=== PATIENT | male | born 1935 | race Caucasian/White ===

== ENCOUNTER 2017-12-07 05:26 | Inpatient (IN) | payer MEDICARE, OTHER ==
[2017-12-06 15:01] LABS: BASOPHILS % (AUTO) 0.1 % (0-1); EOSINOPHILS # (AUTO) 0.3 X10'3 (0-0.9); EOSINOPHILS % (AUTO) 2.3 % (0-6); LYMPHOCYTES # (AUTO) 1.7 X10'3 (1.1-4.8); LYMPHOCYTES % (AUTO) 15.1 % (21-51); MEAN CORPUSCULAR HEMOGLOBIN 33.5 PG (27.0-31.0); MEAN CORPUSCULAR HGB CONC 35.3 % (33.0-36.5); MEAN PLATELET VOLUME 6.3 FL (7.4-10.4); MONOCYTES # (AUTO) 0.9 X10'3 (0-0.9); MONOCYTES % (AUTO) 8.2 % (2-12); NEUTROPHILS # (AUTO) 8.4 X10'3 (1.8-7.7); NEUTROPHILS % (AUTO) 74.3 % (42-75); PRE OP HEMATOCRIT 37.2 % (42.0-52.0); PRE OP HEMOGLOBIN 13.1 g/dL (14.0-17.9); PRE OP PLATELET COUNT 588 X10'3 (140-440); RED BLOOD COUNT 3.92 X10'6 (4.70-6.10); RED CELL DISTRIBUTION WIDTH 14.1 % (11.5-14.5)
[2017-12-06 15:03] LABS: CLARITY,URINE Clear (Clear); COLOR,URINE Dark Yellow (Yellow); GLUCOSE, URINE Negative (Neg); KETONES,URINE Trace mg/dl (Neg); LEUKOCYTE ESTERASE ,URINE Trace (Neg); NITRITES, URINE Negative (Neg); OCCULT BLOOD,URINE Small (Neg); PROTEIN,URINE Negative (Neg)
[2017-12-06 15:04] LABS: UA COLLECTION TYPE CLN CATCH MIDSTREAM
[2017-12-06 15:10] LABS: PRE OP INR 1.4 INR; PRE OP PROTIME 14.4 SECONDS (9.0-12.0)
[2017-12-06 15:15] LABS: ALBUMIN 3.1 G/DL (3.4-5.0); ALBUMIN/GLOBULIN RATIO 0.7 (1.1-1.5); ALKALINE PHOSPHATASE 86 IU/L (46-116); BLOOD UREA NITROGEN 20 MG/DL (7-18); BUN/CREATININE RATIO 19.4 (5.4-32.0); CALCIUM 8.9 MG/DL (8.5-10.1); CHLORIDE 101 MMOL/L (99-107); CREATININE 1.03 MG/DL (0.60-1.10); PRE OP ALT 22 U/L (30-65); PRE OP ANION GAP 7 (8-16); PRE OP AST 10 U/L (10-37); PRE OP BILIRUB, TOTAL 0.4 MG/DL (0.0-1.0); PRE OP GLUCOSE 128 MG/DL (70-104); PRE OP POTASSIUM 3.7 MMOL/L (3.4-5.1); PRE OP SODIUM 139 MMOL/L (135-145); TOTAL CARBON DIOXIDE 31.2 MMOL/L (24-32); TOTAL PROTEIN 7.3 G/DL (6.4-8.2); eGFR 69 ML/MIN
[2017-12-06 15:25] LABS: MUCUS STRANDS MODERATE /LPF (Neg); SQUAMOUS EPITHELIAL CELL,UR FEW /LPF (FEW)
[2017-12-06 15:26] LABS: BACTERIA,URINE 1+ /HPF (Neg); RBC,URINE 50-100 /HPF (0-2); WBC,URINE 0-4 /HPF (0-4)
[~2017-12-07] VITALS: Ht 175.3 cm; Wt 97.7 kg
[2017-12-07] VITALS (19 sets, daily range): BP systolic 103–126; BP diastolic 47–76
[~2017-12-07 05:26] MED LIST: AMLO5TAB16 PO; CALC-1051 PO; CARV25TA2 PO; DOXA8TAB PO; HYDR25TA4 PO; LISI40TA4 PO; PEMB100V IV; POTA10CA44 PO; VERA-1 PO; WARF5TAB7 PO; ringers solution, lacted 1,000 ML IV SCH
[2017-12-07] MEDS ORDERED: gabapentin 300mg capsule PO ONE (05:30)
[2017-12-07] MEDS ORDERED: acetaminophen 325mg tablet PO ONE (05:30)
[2017-12-07] MEDS ORDERED: famotidine 20mg tablet PO ONE (05:30)
[2017-12-07] MEDS ORDERED: DOCUMENT DATE & TIME OF BETA-BLOCKER PO ONE (05:30)
[2017-12-07] MEDS ORDERED: metoclopramide 5 mg/ml inj IV ONE (05:30)
[2017-12-07] MEDS ORDERED: celeCOXIB 100mg capsule PO ONE (05:30)
[2017-12-07] MEDS ORDERED: LIDOcaine 1% (10mg/ml) 2ml vial ONE (05:59)
[2017-12-07] MEDS ORDERED: metoclopramide 10mg tablet PO ONE (06:20)
[2017-12-07] MEDS ORDERED: BUPIVAcaine/dex-water/PF 7.5 mg/ml 2ml ampul ONE (07:00)
[2017-12-07] MEDS ORDERED: fentaNYL/PF 50MCG/1 ML 2ML syringe ONE (07:25)
[2017-12-07] MEDS ORDERED: midazolam 2 mg/2 ml injection ONE ×2 (07:26)
[2017-12-07] MEDS ORDERED: tobramycin sulfate 1.2gm vial TP ONE (07:55)
[2017-12-07] MEDS ORDERED: ringers solution, lacted 1,000 ML IV SCH (07:58)
[2017-12-07] MEDS ORDERED: morphine 2 MG/ML inj. syringe IV PRN ×2 (08:00)
[2017-12-07] MEDS ORDERED: ondansetron/PF 4mg/2ml inj IV PRN ×2 (08:00→10:05)
[2017-12-07] MEDS ORDERED: meperidine/PF 50mg/ml syringe IV PRN ×3 (08:00)
[2017-12-07] MEDS ORDERED: proCHLORperazine 10 MG/2 ml inj IV PRN (08:00)
[2017-12-07] MEDS ORDERED: ROPIVAcaine 0.5% (5mg/ml) 30ml vial ONE ×2 (08:07→09:33)
[2017-12-07] MEDS ORDERED: ketorolac trometh. 30mg/ml inj. ONE (08:07)
[2017-12-07] MEDS ORDERED: cloNIDine hcl/PF 100mcg/ml inj ONE (08:07)
[2017-12-07] MEDS ORDERED: epiNEPHrine 1 mg/ml inj ONE (08:07)
[2017-12-07] MEDS ORDERED: LIDOcaine 1%/PF (10mg/ml) 5ml vial ONE (08:42)
[2017-12-07] MEDS ORDERED: propofol inj 20 ML IV ONE (08:42)
[2017-12-07] MEDS ORDERED: vancomycin 1,000mg inj ONE ×6 (08:46→09:18)
[2017-12-07] MEDS ORDERED: ceFAZolin 1000mg inj ONE ×2 (08:50)
[2017-12-07] MEDS ORDERED: magnesium hydroxide 30ml (MOM) UD suspension PO PRN (10:05)
[2017-12-07] MEDS ORDERED: bisacodyl 10mg suppository rectal RC PRN (10:05)
[2017-12-07] MEDS ORDERED: acetaminophen 325mg tablet PO PRN (10:05)
[2017-12-07] MEDS ORDERED: diphenhydrAMINE 25mg capsule PO PRN ×2 (10:05)
[2017-12-07] MEDS ORDERED: HYDROmorphone inj. 0.5 MG/0.5 ML DISP.SYRIN IV PRN (10:05)
[2017-12-07] MEDS ORDERED: acetaminophen 1,000mg/100ml IV 100 ML IV SCH (10:55)
[2017-12-07] MEDS: potassium cl 20mEq in 1/2 NS 1,000 ML IV SCH ×2 (11:35→21:22)
[2017-12-07] MEDS: HYDROmorphone inj. 0.5 MG/0.5 ML DISP.SYRIN IV PRN (11:43)
[2017-12-07] MEDS ORDERED: vancomycin/NS 1 GM ADD-VANTAGE 500 ML IV ONE ×2 (12:00→13:30)
[2017-12-07 12:21] LABS: INR 1.3 INR; PROTHROMBIN TIME 13.5 SECONDS (9.0-12.0)
[2017-12-07] MEDS: gabapentin 300mg capsule PO SCH ×2 (13:47→20:37)
[2017-12-07] MEDS: HYDROcodone/acetaminophen 10/325mg tab PO PRN (13:54)
[2017-12-07] MEDS: cefazolin 1gm/NS 100mL 100 ML IV SCH (16:00)
[2017-12-07] MEDS: lactobacillus rhamnosus 10,000 MMU CELLS/CAPSULE PO SCH (17:30)
[2017-12-07] MEDS: celeCOXIB 100mg capsule PO SCH (20:21)
[2017-12-07] MEDS: calcium carbonate/vitamin D3 tablet PO SCH (20:21)
[2017-12-07] MEDS: ascorbic acid 500mg tablet PO SCH (20:21)
[2017-12-07] MEDS: carVEDilol 12.5mg tablet PO SCH (20:21)
[2017-12-07] MEDS: amLODIPine 2.5mg tablet PO SCH (20:37)
[2017-12-07] MEDS: lisinopril 20mg tablet PO SCH (20:38)
[2017-12-07] MEDS: sennosides 8.6mg tablet PO SCH (20:38)
[2017-12-07] MEDS: warfarin 7.5mg tablet PO SCH (20:38)
[2017-12-07] MEDS: doxazosin mesylate 2mg tablet PO SCH (20:39)
[2017-12-08] MEDS: vancomycin inj 1,250 MG in normal saline 250ml IV soln 250 ML IV SCH ×3 (00:20→23:53)
[2017-12-08] MEDS: cefazolin 1gm/NS 100mL 100 ML IV SCH (00:20)
[2017-12-08 02:07] VITALS: BP 128/73
[2017-12-08 05:00] VITALS: BP 138/83
[2017-12-08 05:23] LABS: BASOPHILS % (AUTO) 0.2 % (0-1); EOSINOPHILS # (AUTO) 0.2 X10'3 (0-0.9); EOSINOPHILS % (AUTO) 1.5 % (0-6); HEMATOCRIT 29.1 % (42.0-52.0); LYMPHOCYTES # (AUTO) 1.2 X10'3 (1.1-4.8); LYMPHOCYTES % (AUTO) 9.7 % (21-51); MEAN CORPUSCULAR HEMOGLOBIN 33.1 PG (27.0-31.0); MEAN CORPUSCULAR HGB CONC 34.3 % (33.0-36.5); MEAN CORPUSCULAR VOLUME 96.6 FL (78-98); MEAN PLATELET VOLUME 6.4 FL (7.4-10.4); MONOCYTES # (AUTO) 1.2 X10'3 (0-0.9); MONOCYTES % (AUTO) 9.5 % (2-12); NEUTROPHILS % (AUTO) 79.1 % (42-75); PLATELET COUNT 429 X10'3 (140-440); RED BLOOD COUNT 3.01 X10'6 (4.70-6.10); RED CELL DISTRIBUTION WIDTH 14.2 % (11.5-14.5); WHITE BLOOD COUNT 12.7 X10'3 (4.5-11.0)
[2017-12-08] MEDS: HYDROcodone/acetaminophen 10/325mg tab PO PRN ×4 (05:44→19:17)
[2017-12-08 06:17] LABS: INR 1.2 INR; PROTHROMBIN TIME 12.5 SECONDS (9.0-12.0)
[2017-12-08 06:33] LABS: ANION GAP 7 (8-16); CHLORIDE 105 MMOL/L (99-107); POTASSIUM 3.8 MMOL/L (3.5-5.1); SODIUM 139 MMOL/L (135-145); TOTAL CARBON DIOXIDE 26.6 MMOL/L (24-32)
[2017-12-08] MEDS: potassium cl 20mEq in 1/2 NS 1,000 ML IV SCH ×3 (06:47→17:29)
[2017-12-08] MEDS: verapamil SR 120mg (sust. release) tab PO SCH (07:47)
[2017-12-08] MEDS: lactobacillus rhamnosus 10,000 MMU CELLS/CAPSULE PO SCH ×2 (07:47→17:29)
[2017-12-08] MEDS: carVEDilol 12.5mg tablet PO SCH ×2 (07:48→19:16)
[2017-12-08] MEDS: HYDROchlorothiazide 25mg tablet PO SCH (07:48)
[2017-12-08] MEDS: celeCOXIB 100mg capsule PO SCH ×2 (07:48→19:15)
[2017-12-08] MEDS: gabapentin 300mg capsule PO SCH ×3 (07:48→20:58)
[2017-12-08] MEDS: calcium carbonate/vitamin D3 tablet PO SCH ×2 (07:48→19:15)
[2017-12-08] MEDS: ascorbic acid 500mg tablet PO SCH ×2 (07:49→19:15)
[2017-12-08] MEDS: potassium chloride 10mEq CAPSULE.SA PO SCH (07:49)
[2017-12-08] MEDS: multivitamins, therapeutics tablet PO SCH (07:49)
[2017-12-08] MEDS: lisinopril 20mg tablet PO SCH ×2 (07:49→19:16)
[2017-12-08 10:00] VITALS: BP 103/55
[2017-12-08] MEDS: HYDROmorphone inj. 0.5 MG/0.5 ML DISP.SYRIN IV PRN (12:13)
[2017-12-08 18:00] VITALS: BP 103/64
[2017-12-08] MEDS: amLODIPine 2.5mg tablet PO SCH (20:58)
[2017-12-08] MEDS: sennosides 8.6mg tablet PO SCH (20:58)
[2017-12-08] MEDS: warfarin 7.5mg tablet PO SCH (20:59)
[2017-12-08] MEDS: doxazosin mesylate 2mg tablet PO SCH (21:00)
[2017-12-08 22:00] VITALS: BP 123/65
[2017-12-09] MEDS: potassium cl 20mEq in 1/2 NS 1,000 ML IV SCH (02:03)
[2017-12-09 05:18] LABS: BASOPHILS # (AUTO) 0.1 X10'3 (0-0.2); BASOPHILS % (AUTO) 0.6 % (0-1); EOSINOPHILS # (AUTO) 0.4 X10'3 (0-0.9); EOSINOPHILS % (AUTO) 4.5 % (0-6); HEMATOCRIT 30.1 % (42.0-52.0); HEMOGLOBIN 10.3 g/dl (14.0-17.9); LYMPHOCYTES # (AUTO) 1.3 X10'3 (1.1-4.8); LYMPHOCYTES % (AUTO) 13.7 % (21-51); MEAN CORPUSCULAR HEMOGLOBIN 32.8 PG (27.0-31.0); MEAN CORPUSCULAR HGB CONC 34.3 % (33.0-36.5); MEAN CORPUSCULAR VOLUME 95.5 FL (78-98); MEAN PLATELET VOLUME 6.4 FL (7.4-10.4); MONOCYTES # (AUTO) 1.2 X10'3 (0-0.9); MONOCYTES % (AUTO) 12.8 % (2-12); NEUTROPHILS # (AUTO) 6.6 X10'3 (1.8-7.7); NEUTROPHILS % (AUTO) 68.4 % (42-75); PLATELET COUNT 437 X10'3 (140-440); RED BLOOD COUNT 3.15 X10'6 (4.70-6.10); RED CELL DISTRIBUTION WIDTH 14.8 % (11.5-14.5); WHITE BLOOD COUNT 9.7 X10'3 (4.5-11.0)
[2017-12-09] MEDS: HYDROcodone/acetaminophen 10/325mg tab PO PRN ×2 (05:32→12:25)
[2017-12-09 05:48] LABS: INR 1.3 INR; PROTHROMBIN TIME 13.5 SECONDS (9.0-12.0)
[2017-12-09 06:00] VITALS: BP 124/69
[2017-12-09] MEDS: lisinopril 20mg tablet PO SCH ×2 (08:48→20:00)
[2017-12-09] MEDS: ascorbic acid 500mg tablet PO SCH ×2 (08:49→19:32)
[2017-12-09] MEDS: carVEDilol 12.5mg tablet PO SCH ×2 (08:49→19:35)
[2017-12-09] MEDS: calcium carbonate/vitamin D3 tablet PO SCH ×2 (08:49→19:32)
[2017-12-09] MEDS: verapamil SR 120mg (sust. release) tab PO SCH (08:49)
[2017-12-09] MEDS: gabapentin 300mg capsule PO SCH ×3 (08:49→21:15)
[2017-12-09] MEDS: lactobacillus rhamnosus 10,000 MMU CELLS/CAPSULE PO SCH ×2 (08:49→19:32)
[2017-12-09] MEDS: celeCOXIB 100mg capsule PO SCH ×2 (08:49→19:32)
[2017-12-09] MEDS: HYDROchlorothiazide 25mg tablet PO SCH (08:49)
[2017-12-09] MEDS: multivitamins, therapeutics tablet PO SCH (08:49)
[2017-12-09] MEDS: potassium chloride 10mEq CAPSULE.SA PO SCH (08:50)
[2017-12-09 10:00] VITALS: BP 126/75
[2017-12-09] MEDS ORDERED: VANCOMYCIN LEVEL IV ONE (11:30)
[2017-12-09] MEDS: vancomycin inj 1,250 MG in normal saline 250ml IV soln 250 ML IV SCH (12:17)
[2017-12-09 19:00] VITALS: BP 98/50
[2017-12-09 19:30] VITALS: BP 111/61
[2017-12-09] MEDS: sennosides 8.6mg tablet PO SCH (21:00)
[2017-12-09] MEDS: amLODIPine 2.5mg tablet PO SCH (21:14)
[2017-12-09] MEDS: warfarin 7.5mg tablet PO SCH (21:14)
[2017-12-09 21:15] VITALS: BP 115/62
[2017-12-09] MEDS: doxazosin mesylate 2mg tablet PO SCH (21:15)
[2017-12-09 22:00] VITALS: BP 107/66
[2017-12-10] MEDS: vancomycin inj 1,250 MG in normal saline 250ml IV soln 250 ML IV SCH ×2 (00:32→13:18)
[2017-12-10] MEDS: HYDROcodone/acetaminophen 10/325mg tab PO PRN ×3 (04:56→16:44)
[2017-12-10 05:20] LABS: BASOPHILS % (AUTO) 0.3 % (0-1); EOSINOPHILS # (AUTO) 0.6 X10'3 (0-0.9); EOSINOPHILS % (AUTO) 6.3 % (0-6); HEMATOCRIT 26.7 % (42.0-52.0); HEMOGLOBIN 9.2 g/dl (14.0-17.9); LYMPHOCYTES # (AUTO) 1.6 X10'3 (1.1-4.8); LYMPHOCYTES % (AUTO) 17.1 % (21-51); MEAN CORPUSCULAR HEMOGLOBIN 33.1 PG (27.0-31.0); MEAN CORPUSCULAR HGB CONC 34.3 % (33.0-36.5); MEAN CORPUSCULAR VOLUME 96.5 FL (78-98); MEAN PLATELET VOLUME 6.4 FL (7.4-10.4); MONOCYTES # (AUTO) 1.3 X10'3 (0-0.9); NEUTROPHILS # (AUTO) 5.8 X10'3 (1.8-7.7); NEUTROPHILS % (AUTO) 62.3 % (42-75); PLATELET COUNT 405 X10'3 (140-440); RED BLOOD COUNT 2.77 X10'6 (4.70-6.10); RED CELL DISTRIBUTION WIDTH 14.4 % (11.5-14.5); WHITE BLOOD COUNT 9.4 X10'3 (4.5-11.0)
[2017-12-10 05:27] LABS: INR 1.4 INR; PROTHROMBIN TIME 14.1 SECONDS (9.0-12.0)
[2017-12-10 06:00] VITALS: BP 132/80
[2017-12-10] MEDS: verapamil SR 120mg (sust. release) tab PO SCH (09:33)
[2017-12-10] MEDS: celeCOXIB 100mg capsule PO SCH ×2 (09:33→20:32)
[2017-12-10] MEDS: lactobacillus rhamnosus 10,000 MMU CELLS/CAPSULE PO SCH ×2 (09:33→16:44)
[2017-12-10] MEDS: carVEDilol 12.5mg tablet PO SCH ×2 (09:34→20:32)
[2017-12-10] MEDS: potassium Cl 20 mEq SR tablet PO SCH (09:34)
[2017-12-10] MEDS: gabapentin 300mg capsule PO SCH ×3 (09:34→20:31)
[2017-12-10] MEDS: multivitamins, therapeutics tablet PO SCH (09:34)
[2017-12-10] MEDS: HYDROchlorothiazide 25mg tablet PO SCH (09:34)
[2017-12-10] MEDS: ascorbic acid 500mg tablet PO SCH ×2 (09:34→20:31)
[2017-12-10] MEDS: calcium carbonate/vitamin D3 tablet PO SCH ×2 (09:34→20:33)
[2017-12-10] MEDS: lisinopril 20mg tablet PO SCH ×2 (09:35→20:00)
[2017-12-10 10:00] VITALS: BP 100/67
[2017-12-10 18:00] VITALS: BP 104/54
[2017-12-10 20:30] VITALS: BP 116/64
[2017-12-10] MEDS: warfarin 7.5mg tablet PO SCH (20:32)
[2017-12-10] MEDS: doxazosin mesylate 2mg tablet PO SCH (20:33)
[2017-12-10] MEDS: sennosides 8.6mg tablet PO SCH (20:38)
[2017-12-10] MEDS: amLODIPine 2.5mg tablet PO SCH (21:51)
[2017-12-10 22:00] VITALS: BP 113/59
[2017-12-11] MEDS: vancomycin inj 1,250 MG in normal saline 250ml IV soln 250 ML IV SCH ×2 (00:04→12:40)
[2017-12-11] MEDS: HYDROcodone/acetaminophen 10/325mg tab PO PRN (05:28)
[2017-12-11 05:53] LABS: INR 1.5 INR; PROTHROMBIN TIME 15.4 SECONDS (9.0-12.0)
[2017-12-11] MEDS: gabapentin 300mg capsule PO SCH ×2 (08:55→12:40)
[2017-12-11] MEDS: verapamil SR 120mg (sust. release) tab PO SCH (08:55)
[2017-12-11] MEDS: HYDROchlorothiazide 25mg tablet PO SCH (08:55)
[2017-12-11] MEDS: calcium carbonate/vitamin D3 tablet PO SCH (08:55)
[2017-12-11] MEDS: ascorbic acid 500mg tablet PO SCH (08:55)
[2017-12-11] MEDS: celeCOXIB 100mg capsule PO SCH (08:55)
[2017-12-11] MEDS: lactobacillus rhamnosus 10,000 MMU CELLS/CAPSULE PO SCH (08:55)
[2017-12-11] MEDS: lisinopril 20mg tablet PO SCH (08:56)
[2017-12-11] MEDS: potassium Cl 20 mEq SR tablet PO SCH (08:56)
[2017-12-11] MEDS: multivitamins, therapeutics tablet PO SCH (08:56)
[2017-12-11] MEDS: carVEDilol 12.5mg tablet PO SCH (08:56)
[2017-12-11 10:00] VITALS: BP 110/54
== END 2017-12-11 16:10 | disposition home health service (06) | DRG 464 ==
LOC: PAS IN 05:26 → EDSTATUS 07:30 → ORTHO 4S 11:12
PROVIDERS: ADMIT Orthopaedic Surgery; ATTEND Orthopaedic Surgery
PROC: 0SHC08Z Insertion of Spacer into Right Knee Joint, Open Approach (ICD-10-PCS; 2017-12-07)
PROC: 3E0T3BZ Introduction of Anesthetic Agent into Peripheral Nerves and Plexi, Percutaneous Approach (ICD-10-PCS; 2017-12-07)
PROC: 0SPC0JZ Removal of Synthetic Substitute from Right Knee Joint, Open Approach (ICD-10-PCS; principal; 2017-12-07 07:12)
PROC: 02HV33Z Insertion of Infusion Device into Superior Vena Cava, Percutaneous Approach (ICD-10-PCS; 2017-12-11)
PROC: B548ZZA Ultrasonography of Superior Vena Cava, Guidance (ICD-10-PCS; 2017-12-11)
DX: T84.53XA Infection and inflammatory reaction due to internal right knee prosthesis, initial encounter (principal); C78.7 Secondary malignant neoplasm of liver and intrahepatic bile duct; C43.9 Malignant melanoma of skin, unspecified; D62 Acute posthemorrhagic anemia; I48.2 Chronic atrial fibrillation; M19.90 Unspecified osteoarthritis, unspecified site; I10 Essential (primary) hypertension; M66.0 Rupture of popliteal cyst; N40.0 Benign prostatic hyperplasia without lower urinary tract symptoms; Y83.1 Surgical operation with implant of artificial internal device as the cause of abnormal reaction of the patient, or of later complication, without mention of misadventure at the time of the procedure; Z79.01 Long term (current) use of anticoagulants; Z79.899 Other long term (current) drug therapy; Z86.718 Personal history of other venous thrombosis and embolism; Z86.73 Personal history of transient ischemic attack (TIA), and cerebral infarction without residual deficits
CPT/HCPCS: 36415; 36569; 71045; 71046; 73560; 76937; 80051; 80053; 80202; 81001; 85025; 85610; 85651; 85730; 86140; 86885; 86900; 86901; 87070; 87075; 87088; 87102; 87176; 97110; 97116; 97162; 97530; A6213; A6455; A7000; C1713; C1758; J0131; J0171; J0690; J0735; J1170; J1885; J2001; J2175; J2250; J2704; J2795; J3010; J3260; J3370; J3490; J7030; J7120; J8597

== ENCOUNTER 2018-04-05 09:41 | Emergency (ER) | payer MEDICARE, OTHER ==
[~2018-04-05] VITALS: Ht 175.3 cm; Wt 90.9 kg
[~2018-04-05 09:41] MED LIST changes: +MULT-963 PO; +PEMB100V; -PEMB100V IV; -POTA10CA44 PO; +POTA20TA19 PO; +WARF-55 PO; -WARF5TAB7 PO; -ringers solution, lacted 1,000 ML IV SCH
[2018-04-05] MEDS ORDERED: DAPT500V2 (11:51)
[2018-04-05 11:58] LABS: CLARITY,URINE CLEAR (Clear); COLOR,URINE YELLOW (Yellow); GLUCOSE, URINE NEGATIVE (Neg); KETONES,URINE NEGATIVE (Neg); LEUKOCYTE ESTERASE ,URINE NEGATIVE (Neg); NITRITES, URINE NEGATIVE (Neg); OCCULT BLOOD,URINE TRACE-LYSED (Neg); PH,URINE 7.5 (4.8-8.0); PROTEIN,URINE NEGATIVE (Neg); UROBILINOGEN,URINE 0.2 E.U/dL (0.2-1.0)
[2018-04-05 11:59] LABS: UA COLLECTION TYPE CLN CATCH MIDSTREAM
[2018-04-05 12:10] LABS: BACTERIA,URINE FEW /HPF (Neg); SQUAMOUS EPITHELIAL CELL,UR FEW /LPF (FEW); WBC,URINE 0-4 /HPF (0-4)
[2018-04-05 12:37] LABS: BASOPHILS % (AUTO) 0.2 % (0-1); EOSINOPHILS # (AUTO) 0.2 X10'3 (0-0.9); EOSINOPHILS % (AUTO) 2.3 % (0-6); HEMATOCRIT 29.5 % (42.0-52.0); HEMOGLOBIN 9.9 g/dl (14.0-17.9); LYMPHOCYTES % (AUTO) 12.9 % (21-51); MEAN CORPUSCULAR HEMOGLOBIN 31.3 PG (27.0-31.0); MEAN CORPUSCULAR HGB CONC 33.5 % (33.0-36.5); MEAN CORPUSCULAR VOLUME 93.3 FL (78-98); MEAN PLATELET VOLUME 6.3 FL (7.4-10.4); MONOCYTES # (AUTO) 0.7 X10'3 (0-0.9); NEUTROPHILS # (AUTO) 5.9 X10'3 (1.8-7.7); NEUTROPHILS % (AUTO) 75.6 % (42-75); PLATELET COUNT 487 X10'3 (140-440); RED BLOOD COUNT 3.16 X10'6 (4.70-6.10); RED CELL DISTRIBUTION WIDTH 15.2 % (11.5-14.5); WHITE BLOOD COUNT 7.9 X10'3 (4.5-11.0)
[2018-04-05 12:47] LABS: INR 2.6 INR; PARTIAL THROMBOPLASTIN TIME 34 SECONDS (22-32); PROTHROMBIN TIME 25.6 SECONDS (9.0-12.0)
[2018-04-05 12:55] LABS: ALANINE AMINOTRANSFERASE 19 U/L (12-78); ALBUMIN/GLOBULIN RATIO 0.8 (1.1-1.5); ALKALINE PHOSPHATASE 99 IU/L (46-116); ANION GAP 8 (8-16); ASPARTATE AMINO TRANSFERASE 16 U/L (10-37); BILIRUBIN,TOTAL 0.6 MG/DL (0.1-1.0); BLOOD UREA NITROGEN 13 MG/DL (7-18); BUN/CREATININE RATIO 16.3 (5.4-32.0); C-REACTIVE PROTEIN 6.32 MG/DL (0.0-0.5); CALCIUM 8.9 MG/DL (8.5-10.1); CHLORIDE 102 MMOL/L (99-107); GLUCOSE 131 MG/DL (70-104); POTASSIUM 3.6 MMOL/L (3.5-5.1); SODIUM 140 MMOL/L (135-145); eGFR > 90 ML/MIN
[2018-04-05 14:44] VITALS: BP 126/80
== END 2018-04-05 15:37 | disposition home or self-care (01) ==
LOC: ER 09:43
DX: M96.89 Other intraoperative and postprocedural complications and disorders of the musculoskeletal system (principal); R22.41 Localized swelling, mass and lump, right lower limb; I48.91 Unspecified atrial fibrillation; Z98.890 Other specified postprocedural states; Z88.8 Allergy status to other drugs, medicaments and biological substances; Z79.899 Other long term (current) drug therapy; Z79.01 Long term (current) use of anticoagulants
CPT/HCPCS: 36415; 73560; 80053; 81001; 84145; 85025; 85610; 85651; 85730; 86140; 87070; 87077; 87186; 99285; A6449

== ENCOUNTER 2018-04-11 09:55 | Inpatient (IN) | payer MEDICARE, OTHER ==
[2018-04-11] VITALS (17 sets, daily range): BP systolic 115–152; BP diastolic 55–84
[~2018-04-11] VITALS: Ht 175.3 cm; Wt 90.7 kg
[~2018-04-11 09:55] MED LIST changes: +DAPT500V2; +acetaminophen 325mg tablet PO ONE; +ceFAZolin 1GM/D5W- ADD-VANTAGE 50 ML IV ONE; +ceFAZolin 2gm in dextrose, iso 100 ML IV ONE; +celeCOXIB 100mg capsule PO ONE; +famotidine 20mg tablet PO ONE; +gabapentin 300mg capsule PO ONE; +metoclopramide 5 mg/ml inj IV ONE; +ringers solution, lacted 1,000 ML IV SCH; +vancomycin inj 1,500 MG in normal saline 300ml IV soln IV ONE
[2018-04-11 10:34] LABS: BASOPHILS % (AUTO) 0.2 % (0-1); EOSINOPHILS # (AUTO) 0.3 X10'3 (0-0.9); EOSINOPHILS % (AUTO) 2.8 % (0-6); LYMPHOCYTES # (AUTO) 1.2 X10'3 (1.1-4.8); LYMPHOCYTES % (AUTO) 12.9 % (21-51); MEAN CORPUSCULAR HEMOGLOBIN 30.9 PG (27.0-31.0); MEAN CORPUSCULAR HGB CONC 33.3 % (33.0-36.5); MEAN CORPUSCULAR VOLUME 93.1 FL (78-98); MONOCYTES # (AUTO) 0.7 X10'3 (0-0.9); MONOCYTES % (AUTO) 7.8 % (2-12); NEUTROPHILS % (AUTO) 76.3 % (42-75); PRE OP HEMATOCRIT 31.4 % (42.0-52.0); PRE OP PLATELET COUNT 505 X10'3 (140-440); RED BLOOD COUNT 3.37 X10'6 (4.70-6.10); RED CELL DISTRIBUTION WIDTH 15.7 % (11.5-14.5)
[2018-04-11 10:36] LABS: PRE OP HEMOGLOBIN 10.4 g/dL (14.0-17.9)
[2018-04-11 10:45] LABS: PRE OP PROTIME 19.4 SECONDS (9.0-12.0)
[2018-04-11 10:46] LABS: PRE OP INR 1.9 INR
[2018-04-11 10:49] LABS: ALBUMIN 3.2 G/DL (3.4-5.0); ALBUMIN/GLOBULIN RATIO 0.8 (1.1-1.5); ALKALINE PHOSPHATASE 94 IU/L (46-116); BLOOD UREA NITROGEN 14 MG/DL (7-18); BUN/CREATININE RATIO 16.1 (5.4-32.0); CALCIUM 8.9 MG/DL (8.5-10.1); CHLORIDE 102 MMOL/L (99-107); CREATININE 0.87 MG/DL (0.60-1.10); PRE OP ALT 17 U/L (30-65); PRE OP ANION GAP 10 (8-16); PRE OP AST 12 U/L (10-37); PRE OP BILIRUB, TOTAL 0.5 MG/DL (0.0-1.0); PRE OP GLUCOSE 124 MG/DL (70-104); PRE OP SODIUM 141 MMOL/L (135-145); TOTAL CARBON DIOXIDE 28.9 MMOL/L (24-32); TOTAL PROTEIN 7.3 G/DL (6.4-8.2); eGFR 84 ML/MIN
[2018-04-11 10:54] LABS: PRE OP POTASSIUM 2.9 MMOL/L (3.4-5.1)
[2018-04-11] MEDS ORDERED: ROPIVAcaine inj 250 MG, epiNEPHrine inj 0.5 MG, CloNIDine/PF inj 80 MCG in normal salin... SQ ONE (11:45)
[2018-04-11] MEDS ORDERED: ketorolac trometh. 30mg/ml inj. ONE (11:58)
[2018-04-11] MEDS ORDERED: vancomycin 1,000mg inj ONE ×2 (11:58→14:39)
[2018-04-11] MEDS ORDERED: Potassium Cl inj 40 MEQ, LIDOcaine 1% 30ml vial 5 ML in normal saline 500ml IV soln 500 ML IV ONE (12:10)
[2018-04-11] MEDS ORDERED: BUPIVAcaine/PF 7.5mg/ml (0.75%) 10ml vial ONE (14:58)
[2018-04-11] MEDS ORDERED: ROPIVAcaine 0.5% (5mg/ml) 30ml vial ONE (14:58)
[2018-04-11] MEDS ORDERED: tetracaine 1% (10mg/ml) pres. free inj. ONE (14:59)
[2018-04-11] MEDS ORDERED: fentaNYL/PF 50MCG/1 ML 2ML syringe ONE (15:05)
[2018-04-11] MEDS ORDERED: morphine sulfate /PF 0.5 MG/ML 10mL ampul ONE (15:06)
[2018-04-11] MEDS ORDERED: tobramycin sulfate 1.2gm vial IJ ONE (15:10)
[2018-04-11] MEDS ORDERED: morphine 4 MG/ML inj SYRINge IV PRN ×2 (15:55)
[2018-04-11] MEDS ORDERED: ringers solution, lacted 1,000 ML IV SCH (15:55)
[2018-04-11] MEDS ORDERED: fentaNYL/PF 50MCG/1 ML 2ML syringe IV PRN ×2 (15:55)
[2018-04-11] MEDS ORDERED: labetalol 20mg/4ml (5mg/ml) syringe IV PRN (15:55)
[2018-04-11] MEDS ORDERED: enalaprilat dihydrate 2.5mg/2ml vial IV PRN (15:55)
[2018-04-11] MEDS ORDERED: ondansetron/PF 4mg/2ml inj IV PRN ×2 (15:55→17:40)
[2018-04-11] MEDS ORDERED: tranexamic acid 100mg/ml inj. ONE (16:26)
[2018-04-11] MEDS ORDERED: MIDAZolam 5mg/5ml vial ONE (16:47)
[2018-04-11] MEDS ORDERED: oxyCODONE/APAP 10/325mg tablet PO PRN ×2 (17:40)
[2018-04-11] MEDS ORDERED: magnesium hydroxide 30ml (MOM) UD suspension PO PRN (17:40)
[2018-04-11] MEDS ORDERED: bisacodyl 10mg suppository rectal RC PRN (17:40)
[2018-04-11] MEDS ORDERED: diphenhydrAMINE 25mg capsule PO PRN ×2 (17:40)
[2018-04-11] MEDS ORDERED: HYDROmorphone 1 mg/ml syringe IV PRN ×2 (17:40)
[2018-04-11] MEDS ORDERED: acetaminophen 325mg tablet PO PRN (17:40)
[2018-04-11 17:50] LABS: ISTAT ANION GAP 14 (8-12); ISTAT BUN 14 mg/dL (6-19); ISTAT CL 102 mmol/L (99-107); ISTAT CREATININE 0.6 mg/dL (0.8-1.3); ISTAT GLUCOSE 115 mg/dL (70-104); ISTAT HGB 8.5 g/dl (14.0-18.0); ISTAT Hct 25 %PCV (42-52); ISTAT IONIZED CALCIUM 1.19 mmol/L (1.03-1.32); ISTAT K 3.5 mmol/L (3.5-5.1); ISTAT NA 141 mmol/L (135-145); ISTAT TOTAL CO2 25 mmol/L (24-32); ISTAT eGFR > 90 ML/MIN; POC BUN/CREATININE RATIO 23.3 (5.4-32.0)
[2018-04-11] MEDS ORDERED: non-formulary drug (Calcium Carbonate/Vitamin D3 (Calcium 500 + D Tablet) 1 TAB) PO SCH (20:00)
[2018-04-11] MEDS ORDERED: non-formulary drug (Carvedilol 1 TAB) PO SCH (20:00)
[2018-04-11] MEDS ORDERED: non-formulary drug (Lisinopril* 1 TAB) PO SCH (20:00)
[2018-04-11] MEDS: amLODIPine 2.5mg tablet PO SCH (20:07)
[2018-04-11] MEDS: potassium cl 20mEq in 1/2 NS 1,000 ML IV SCH (20:07)
[2018-04-11] MEDS: doxazosin mesylate 2mg tablet PO SCH (20:07)
[2018-04-11] MEDS: gabapentin 300mg capsule PO SCH (20:07)
[2018-04-11] MEDS: carVEDilol 12.5mg tablet PO SCH (20:08)
[2018-04-11] MEDS: ascorbic acid 500mg tablet PO SCH (20:08)
[2018-04-11] MEDS: warfarin 5mg tablet PO SCH (20:08)
[2018-04-11] MEDS: calcium carbonate/vitamin D3 tablet PO SCH (20:08)
[2018-04-11] MEDS: lisinopril 20mg tablet PO SCH (20:08)
[2018-04-11] MEDS: potassium Cl 20 mEq SR tablet PO SCH (20:08)
[2018-04-11] MEDS: sennosides 8.6mg tablet PO SCH (20:09)
[2018-04-11] MEDS ORDERED: non-formulary drug (Doxazosin Mesylate 1 TAB) PO SCH (21:00)
[2018-04-12 02:30] VITALS: BP 132/79
[2018-04-12] MEDS: potassium cl 20mEq in 1/2 NS 1,000 ML IV SCH ×3 (03:44→17:37)
[2018-04-12 05:29] LABS: BASOPHILS % (AUTO) 0.3 % (0-1); EOSINOPHILS % (AUTO) 0.1 % (0-6); HEMATOCRIT 26.1 % (42.0-52.0); HEMOGLOBIN 8.7 g/dl (14.0-17.9); LYMPHOCYTES # (AUTO) 0.7 X10'3 (1.1-4.8); LYMPHOCYTES % (AUTO) 12.7 % (21-51); MEAN CORPUSCULAR HEMOGLOBIN 30.6 PG (27.0-31.0); MEAN CORPUSCULAR HGB CONC 33.3 % (33.0-36.5); MEAN CORPUSCULAR VOLUME 91.8 FL (78-98); MEAN PLATELET VOLUME 6.6 FL (7.4-10.4); MONOCYTES # (AUTO) 0.1 X10'3 (0-0.9); MONOCYTES % (AUTO) 1.8 % (2-12); NEUTROPHILS # (AUTO) 4.4 X10'3 (1.8-7.7); NEUTROPHILS % (AUTO) 85.1 % (42-75); PLATELET COUNT 454 X10'3 (140-440); RED BLOOD COUNT 2.85 X10'6 (4.70-6.10); RED CELL DISTRIBUTION WIDTH 15.3 % (11.5-14.5); WHITE BLOOD COUNT 5.2 X10'3 (4.5-11.0)
[2018-04-12 05:45] LABS: INR 1.7 INR; PROTHROMBIN TIME 17.5 SECONDS (9.0-12.0)
[2018-04-12 05:55] LABS: ANION GAP 10 (8-16); CHLORIDE 102 MMOL/L (99-107); POTASSIUM 3.7 MMOL/L (3.5-5.1); SODIUM 138 MMOL/L (135-145); TOTAL CARBON DIOXIDE 26.4 MMOL/L (24-32)
[2018-04-12] MEDS: DAPTOmycin inj. 500 MG in normal saline 100ml IV soln 100 ML IV SCH (07:44)
[2018-04-12] MEDS: HYDROchlorothiazide 25mg tablet PO SCH (07:45)
[2018-04-12] MEDS: gabapentin 300mg capsule PO SCH ×3 (07:45→20:19)
[2018-04-12] MEDS: verapamil SR 120mg (sust. release) tab PO SCH (07:45)
[2018-04-12] MEDS: carVEDilol 12.5mg tablet PO SCH ×2 (07:45→20:19)
[2018-04-12] MEDS: calcium carbonate/vitamin D3 tablet PO SCH ×2 (07:46→20:17)
[2018-04-12] MEDS: lisinopril 20mg tablet PO SCH ×2 (07:47→20:25)
[2018-04-12] MEDS: ascorbic acid 500mg tablet PO SCH ×2 (07:47→20:19)
[2018-04-12] MEDS: multivitamins, therapeutics tablet PO SCH (07:47)
[2018-04-12] MEDS: potassium Cl 20 mEq SR tablet PO SCH ×2 (07:54→20:18)
[2018-04-12 08:00] VITALS: BP 151/86
[2018-04-12] MEDS ORDERED: VERAPAMIL HCL 120 MG PO SCH (08:00)
[2018-04-12 10:00] VITALS: BP 133/73
[2018-04-12 13:57] VITALS: BP 127/57
[2018-04-12 18:00] VITALS: BP 141/74
[2018-04-12] MEDS: celeCOXIB 100mg capsule PO SCH (20:16)
[2018-04-12] MEDS: sennosides 8.6mg tablet PO SCH (20:18)
[2018-04-12] MEDS: lactobacillus rhamnosus 10,000 MMU CELLS/CAPSULE PO SCH (20:23)
[2018-04-12] MEDS: amLODIPine 2.5mg tablet PO SCH (20:24)
[2018-04-12] MEDS: warfarin 5mg tablet PO SCH (20:24)
[2018-04-12] MEDS: doxazosin mesylate 2mg tablet PO SCH (20:25)
[2018-04-12] MEDS ORDERED: warfarin 5mg tablet PO SCH (21:00)
[2018-04-12 22:00] VITALS: BP 144/71
[2018-04-13] MEDS: potassium cl 20mEq in 1/2 NS 1,000 ML IV SCH ×2 (01:37→19:25)
[2018-04-13 05:10] LABS: BASOPHILS % (AUTO) 0.2 % (0-1); EOSINOPHILS % (AUTO) 0.4 % (0-6); HEMATOCRIT 26.1 % (42.0-52.0); HEMOGLOBIN 8.9 g/dl (14.0-17.9); LYMPHOCYTES # (AUTO) 1.4 X10'3 (1.1-4.8); LYMPHOCYTES % (AUTO) 12.9 % (21-51); MEAN CORPUSCULAR HEMOGLOBIN 31.3 PG (27.0-31.0); MEAN CORPUSCULAR HGB CONC 33.9 % (33.0-36.5); MEAN CORPUSCULAR VOLUME 92.3 FL (78-98); MEAN PLATELET VOLUME 6.2 FL (7.4-10.4); MONOCYTES # (AUTO) 1.1 X10'3 (0-0.9); NEUTROPHILS # (AUTO) 8.4 X10'3 (1.8-7.7); NEUTROPHILS % (AUTO) 76.5 % (42-75); PLATELET COUNT 485 X10'3 (140-440); RED BLOOD COUNT 2.83 X10'6 (4.70-6.10); RED CELL DISTRIBUTION WIDTH 15.4 % (11.5-14.5); WHITE BLOOD COUNT 10.9 X10'3 (4.5-11.0)
[2018-04-13 05:55] LABS: INR 2.3 INR; PROTHROMBIN TIME 23.3 SECONDS (9.0-12.0)
[2018-04-13 06:00] VITALS: BP 154/72
[2018-04-13] MEDS: verapamil SR 120mg (sust. release) tab PO SCH (08:07)
[2018-04-13] MEDS: calcium carbonate/vitamin D3 tablet PO SCH ×2 (08:07→20:17)
[2018-04-13] MEDS: ascorbic acid 500mg tablet PO SCH ×2 (08:07→20:17)
[2018-04-13] MEDS: gabapentin 300mg capsule PO SCH ×3 (08:07→20:20)
[2018-04-13] MEDS: carVEDilol 12.5mg tablet PO SCH ×2 (08:07→20:16)
[2018-04-13] MEDS: multivitamins, therapeutics tablet PO SCH (08:07)
[2018-04-13] MEDS: HYDROchlorothiazide 25mg tablet PO SCH (08:07)
[2018-04-13] MEDS: celeCOXIB 100mg capsule PO SCH ×2 (08:07→20:15)
[2018-04-13] MEDS: lisinopril 20mg tablet PO SCH ×2 (08:07→20:17)
[2018-04-13] MEDS: lactobacillus rhamnosus 10,000 MMU CELLS/CAPSULE PO SCH ×2 (08:07→20:16)
[2018-04-13] MEDS: potassium Cl 20 mEq SR tablet PO SCH ×2 (08:07→20:17)
[2018-04-13] MEDS: DAPTOmycin inj. 500 MG in normal saline 100ml IV soln 100 ML IV SCH (08:29)
[2018-04-13 10:00] VITALS: BP 129/63
[2018-04-13 18:00] VITALS: BP 133/79
[2018-04-13 20:14] VITALS: BP 128/71
[2018-04-13] MEDS: doxazosin mesylate 2mg tablet PO SCH (20:18)
[2018-04-13] MEDS: amLODIPine 2.5mg tablet PO SCH (20:20)
[2018-04-13] MEDS: sennosides 8.6mg tablet PO SCH (20:21)
[2018-04-13] MEDS ORDERED: warfarin 2.5mg tablet PO ONE (21:00)
[2018-04-13 22:07] VITALS: BP 139/70
[2018-04-14 05:38] LABS: BASOPHILS % (AUTO) 0.4 % (0-1); EOSINOPHILS # (AUTO) 0.2 X10'3 (0-0.9); EOSINOPHILS % (AUTO) 2.4 % (0-6); HEMATOCRIT 27.5 % (42.0-52.0); HEMOGLOBIN 9.1 g/dl (14.0-17.9); LYMPHOCYTES # (AUTO) 1.4 X10'3 (1.1-4.8); LYMPHOCYTES % (AUTO) 17.4 % (21-51); MEAN CORPUSCULAR HEMOGLOBIN 30.6 PG (27.0-31.0); MEAN CORPUSCULAR HGB CONC 33.2 % (33.0-36.5); MEAN CORPUSCULAR VOLUME 92.3 FL (78-98); MEAN PLATELET VOLUME 6.7 FL (7.4-10.4); MONOCYTES % (AUTO) 12.3 % (2-12); NEUTROPHILS # (AUTO) 5.6 X10'3 (1.8-7.7); NEUTROPHILS % (AUTO) 67.5 % (42-75); PLATELET COUNT 500 X10'3 (140-440); RED BLOOD COUNT 2.98 X10'6 (4.70-6.10); RED CELL DISTRIBUTION WIDTH 15.4 % (11.5-14.5); WHITE BLOOD COUNT 8.3 X10'3 (4.5-11.0)
[2018-04-14 05:56] LABS: INR 1.8 INR; PROTHROMBIN TIME 18.6 SECONDS (9.0-12.0)
[2018-04-14 06:00] VITALS: BP 142/42
[2018-04-14] MEDS: lactobacillus rhamnosus 10,000 MMU CELLS/CAPSULE PO SCH ×2 (07:07→19:28)
[2018-04-14] MEDS: multivitamins, therapeutics tablet PO SCH (07:07)
[2018-04-14] MEDS: celeCOXIB 100mg capsule PO SCH ×2 (07:07→19:28)
[2018-04-14] MEDS: verapamil SR 120mg (sust. release) tab PO SCH (07:07)
[2018-04-14] MEDS: potassium Cl 20 mEq SR tablet PO SCH ×2 (07:07→19:28)
[2018-04-14] MEDS: gabapentin 300mg capsule PO SCH ×3 (07:07→19:36)
[2018-04-14] MEDS: HYDROchlorothiazide 25mg tablet PO SCH (07:07)
[2018-04-14] MEDS: calcium carbonate/vitamin D3 tablet PO SCH ×2 (07:07→19:28)
[2018-04-14] MEDS: carVEDilol 12.5mg tablet PO SCH ×2 (07:07→19:28)
[2018-04-14] MEDS: ascorbic acid 500mg tablet PO SCH ×2 (07:08→19:28)
[2018-04-14] MEDS: lisinopril 20mg tablet PO SCH ×2 (07:08→19:28)
[2018-04-14 07:12] VITALS: BP 150/73
[2018-04-14] MEDS: DAPTOmycin inj. 500 MG in normal saline 100ml IV soln 100 ML IV SCH (07:46)
[2018-04-14 10:00] VITALS: BP 119/63
[2018-04-14 18:00] VITALS: BP 134/85
[2018-04-14] MEDS: doxazosin mesylate 2mg tablet PO SCH (19:30)
[2018-04-14] MEDS: amLODIPine 2.5mg tablet PO SCH (19:36)
[2018-04-14] MEDS: sennosides 8.6mg tablet PO SCH (19:36)
[2018-04-14] MEDS ORDERED: warfarin 4mg tablet PO ONE (21:00)
[2018-04-14 22:00] VITALS: BP 126/69
[2018-04-15 05:36] LABS: INR 1.5 INR; PROTHROMBIN TIME 15.7 SECONDS (9.0-12.0)
[2018-04-15 06:00] VITALS: BP 144/71
[2018-04-15] MEDS: potassium Cl 20 mEq SR tablet PO SCH ×2 (07:21→20:09)
[2018-04-15] MEDS: multivitamins, therapeutics tablet PO SCH (07:22)
[2018-04-15] MEDS: carVEDilol 12.5mg tablet PO SCH ×2 (07:22→20:09)
[2018-04-15] MEDS: lisinopril 20mg tablet PO SCH ×2 (07:22→20:09)
[2018-04-15] MEDS: lactobacillus rhamnosus 10,000 MMU CELLS/CAPSULE PO SCH ×2 (07:22→20:09)
[2018-04-15] MEDS: calcium carbonate/vitamin D3 tablet PO SCH ×2 (07:22→20:09)
[2018-04-15] MEDS: HYDROchlorothiazide 25mg tablet PO SCH (07:22)
[2018-04-15] MEDS: ascorbic acid 500mg tablet PO SCH ×2 (07:22→20:09)
[2018-04-15] MEDS: gabapentin 300mg capsule PO SCH ×3 (07:22→20:09)
[2018-04-15] MEDS: celeCOXIB 100mg capsule PO SCH ×2 (07:22→20:09)
[2018-04-15] MEDS: verapamil SR 120mg (sust. release) tab PO SCH (07:22)
[2018-04-15] MEDS: DAPTOmycin inj. 500 MG in normal saline 100ml IV soln 100 ML IV SCH (09:20)
[2018-04-15 10:00] VITALS: BP 121/55
[2018-04-15 18:26] VITALS: BP 139/66
[2018-04-15] MEDS: amLODIPine 2.5mg tablet PO SCH (20:09)
[2018-04-15] MEDS: sennosides 8.6mg tablet PO SCH (20:10)
[2018-04-15] MEDS: doxazosin mesylate 2mg tablet PO SCH (20:10)
[2018-04-15] MEDS ORDERED: warfarin 3mg tablet PO ONE (21:00)
[2018-04-15 22:00] VITALS: BP 123/62
[2018-04-16 06:36] LABS: INR 1.4 INR; PROTHROMBIN TIME 14.8 SECONDS (9.0-12.0)
[2018-04-16 06:50] LABS: CREATINE KINASE 26 U/L (39-308)
[2018-04-16 07:00] VITALS: BP 131/68
[2018-04-16] MEDS: HYDROchlorothiazide 25mg tablet PO SCH (07:37)
[2018-04-16] MEDS: gabapentin 300mg capsule PO SCH (07:37)
[2018-04-16] MEDS: lisinopril 20mg tablet PO SCH (07:37)
[2018-04-16] MEDS: ascorbic acid 500mg tablet PO SCH (07:37)
[2018-04-16] MEDS: multivitamins, therapeutics tablet PO SCH (07:38)
[2018-04-16] MEDS: lactobacillus rhamnosus 10,000 MMU CELLS/CAPSULE PO SCH (07:38)
[2018-04-16] MEDS: celeCOXIB 100mg capsule PO SCH (07:38)
[2018-04-16] MEDS: verapamil SR 120mg (sust. release) tab PO SCH (07:38)
[2018-04-16] MEDS: potassium Cl 20 mEq SR tablet PO SCH (07:38)
[2018-04-16] MEDS: carVEDilol 12.5mg tablet PO SCH (07:38)
[2018-04-16] MEDS: calcium carbonate/vitamin D3 tablet PO SCH (07:38)
[2018-04-16] MEDS: DAPTOmycin inj. 500 MG in normal saline 100ml IV soln 100 ML IV SCH (08:41)
== END 2018-04-16 11:24 | disposition home or self-care (01) | DRG 486 ==
LOC: PAS IN 09:55 → EDSTATUS 13:00 → ORTHO 4S 18:37
PROVIDERS: ADMIT Orthopaedic Surgery; ATTEND Orthopaedic Surgery
PROC: 0SUV09Z Supplement Right Knee Joint, Tibial Surface with Liner, Open Approach (ICD-10-PCS; 2018-04-11)
PROC: 3E0T3BZ Introduction of Anesthetic Agent into Peripheral Nerves and Plexi, Percutaneous Approach (ICD-10-PCS; 2018-04-11)
PROC: 3E0U029 Introduction of Other Anti-infective into Joints, Open Approach (ICD-10-PCS; 2018-04-11)
PROC: 0SPC09Z Removal of Liner from Right Knee Joint, Open Approach (ICD-10-PCS; principal; 2018-04-11 15:04)
PROC: 02HV33Z Insertion of Infusion Device into Superior Vena Cava, Percutaneous Approach (ICD-10-PCS; 2018-04-15)
PROC: B548ZZA Ultrasonography of Superior Vena Cava, Guidance (ICD-10-PCS; 2018-04-15)
DX: T84.53XA Infection and inflammatory reaction due to internal right knee prosthesis, initial encounter (principal); D62 Acute posthemorrhagic anemia; I10 Essential (primary) hypertension; B95.7 Other staphylococcus as the cause of diseases classified elsewhere; I48.91 Unspecified atrial fibrillation; D47.3 Essential (hemorrhagic) thrombocythemia; N40.0 Benign prostatic hyperplasia without lower urinary tract symptoms; Y83.1 Surgical operation with implant of artificial internal device as the cause of abnormal reaction of the patient, or of later complication, without mention of misadventure at the time of the procedure; T36.8X5A Adverse effect of other systemic antibiotics, initial encounter; Z79.01 Long term (current) use of anticoagulants; Z79.899 Other long term (current) drug therapy; Z88.1 Allergy status to other antibiotic agents; Z86.718 Personal history of other venous thrombosis and embolism; Z86.73 Personal history of transient ischemic attack (TIA), and cerebral infarction without residual deficits; Z85.820 Personal history of malignant melanoma of skin; Z86.14 Personal history of Methicillin resistant Staphylococcus aureus infection; Y92.89 Other specified places as the place of occurrence of the external cause
CPT/HCPCS: 36415; 36569; 71045; 76937; 80047; 80051; 80053; 82550; 85025; 85610; 85651; 85730; 86885; 86900; 86901; 87070; 87075; 97110; 97116; 97162; 97530; A6223; A6255; A6449; A6455; A7000; C1713; C1758; C1776; J0171; J0690; J0735; J0878; J1885; J2250; J2274; J2765; J2795; J3010; J3260; J3370; J3480; J3490; J7030; J7120

== ENCOUNTER 2020-04-08 06:28 | Day surgery (SDC) | payer MEDICARE, OTHER ==
[~2020-04-08] VITALS: Ht 175.3 cm; Wt 87.3 kg
[2020-04-08] VITALS (13 sets, daily range): BP systolic 103–151; BP diastolic 53–93
[~2020-04-08 06:28] MED LIST changes: -DAPT500V2; -PEMB100V; -VERA-1 PO; +VERA240T12 PO; -acetaminophen 325mg tablet PO ONE; -ceFAZolin 1GM/D5W- ADD-VANTAGE 50 ML IV ONE; -ceFAZolin 2gm in dextrose, iso 100 ML IV ONE; -celeCOXIB 100mg capsule PO ONE; -famotidine 20mg tablet PO ONE; -gabapentin 300mg capsule PO ONE; -metoclopramide 5 mg/ml inj IV ONE; -ringers solution, lacted 1,000 ML IV SCH; -vancomycin inj 1,500 MG in normal saline 300ml IV soln IV ONE
[2020-04-08] MEDS ORDERED: normal saline 1000ml 1,000 ML IV PRN (06:55)
[2020-04-08 08:04] LABS: BASOPHILS # (AUTO) 0.1 X10'3 (0-0.2); BASOPHILS % (AUTO) 1.2 % (0-1); EOSINOPHILS # (AUTO) 0.3 X10'3 (0-0.9); EOSINOPHILS % (AUTO) 4.5 % (0-6); HEMATOCRIT 38.8 % (42.0-52.0); HEMOGLOBIN 13.3 g/dl (14.0-17.9); LYMPHOCYTES # (AUTO) 1.2 X10'3 (1.1-4.8); LYMPHOCYTES % (AUTO) 19.9 % (21-51); MEAN CORPUSCULAR HEMOGLOBIN 33.7 PG (27.0-31.0); MEAN CORPUSCULAR HGB CONC 34.4 g/dL (33.0-36.5); MEAN PLATELET VOLUME 7.1 FL (7.4-10.4); MONOCYTES # (AUTO) 0.6 X10'3 (0-0.9); MONOCYTES % (AUTO) 9.9 % (2-12); NEUTROPHILS # (AUTO) 3.8 X10'3 (1.8-7.7); NEUTROPHILS % (AUTO) 64.5 % (42-75); PLATELET COUNT 277 X10'3 (140-440); RED BLOOD COUNT 3.96 X10'6 (4.70-6.10); WHITE BLOOD COUNT 5.8 X10'3 (4.5-11.0)
[2020-04-08] MEDS ORDERED: SPIR25TA5 PO (08:06)
[2020-04-08] MEDS ORDERED: ACET-890 PO (08:06)
[2020-04-08] MEDS ORDERED: ENOX100D2 INJ (08:06)
[2020-04-08] MEDS ORDERED: fentaNYL/PF 50MCG/1 ML 2ML syringe ONE (09:06)
[2020-04-08] MEDS ORDERED: midazolam 2 mg/2 ml injection ONE (09:06)
[2020-04-08] MEDS ORDERED: gelatin sponge, absorbable (Gelfoam 12-7MM) sponge TP ONE (09:49)
[2020-04-08] MEDS ORDERED: HYDROcodone/acetaminophen 5mg/325mg tablet PO PRN ×2 (10:40)
--- NOTE | 2020-04-08 13:17 | NUR ---
Problems reprioritized. Patient report given, questions answered & plan of care reviewed with Ling MARTINEZ.
== END 2020-04-08 14:34 | disposition home or self-care (01) ==
LOC: SSTAY O 06:28
PROVIDERS: ATTEND Radiology Diagnostic Radiology
DX: K76.89 Other specified diseases of liver (principal); K74.0 Hepatic fibrosis; K73.8 Other chronic hepatitis, not elsewhere classified; I48.91 Unspecified atrial fibrillation; I10 Essential (primary) hypertension; E03.9 Hypothyroidism, unspecified; Z79.01 Long term (current) use of anticoagulants; Z79.899 Other long term (current) drug therapy; Z85.820 Personal history of malignant melanoma of skin; Z98.890 Other specified postprocedural states; Z88.1 Allergy status to other antibiotic agents
CPT/HCPCS: 36415; 47000; 77012; 85025; 85610; J2250; J3010; J7030

== ENCOUNTER 2020-10-12 05:25 | Day surgery (SDC) | payer MEDICARE, OTHER ==
[2020-10-05 16:14] LABS: BASOPHILS # (AUTO) 0.1 X10'3 (0-0.2); BASOPHILS % (AUTO) 0.9 % (0-1); EOSINOPHILS # (AUTO) 0.3 X10'3 (0-0.9); LYMPHOCYTES # (AUTO) 1.4 X10'3 (1.1-4.8); LYMPHOCYTES % (AUTO) 18.4 % (21-51); MEAN CORPUSCULAR HEMOGLOBIN 33.5 PG (27.0-31.0); MEAN CORPUSCULAR HGB CONC 33.4 g/dL (33.0-36.5); MEAN CORPUSCULAR VOLUME 100.2 FL (78-98); MEAN PLATELET VOLUME 7.2 FL (7.4-10.4); MONOCYTES # (AUTO) 0.8 X10'3 (0-0.9); MONOCYTES % (AUTO) 10.5 % (2-12); NEUTROPHILS % (AUTO) 66.2 % (42-75); PRE OP HEMATOCRIT 39.9 % (42.0-52.0); PRE OP HEMOGLOBIN 13.3 g/dL (14.0-17.9); PRE OP PLATELET COUNT 264 X10'3 (140-440); RED BLOOD COUNT 3.98 X10'6 (4.70-6.10); RED CELL DISTRIBUTION WIDTH 14.3 % (11.5-14.5)
[2020-10-05 16:23] LABS: PRE OP PROTIME 19.5 SECONDS (9.0-12.0)
[2020-10-05 16:25] LABS: PRE OP INR 1.9 INR
[2020-10-05 16:34] LABS: ALBUMIN 3.7 G/DL (3.4-5.0); ALBUMIN/GLOBULIN RATIO 1.1 (1.1-1.5); ALKALINE PHOSPHATASE 60 IU/L (46-116); BLOOD UREA NITROGEN 25 MG/DL (7-18); BUN/CREATININE RATIO 28.7 (5.4-32.0); CHLORIDE 105 MMOL/L (99-107); CREATININE 0.87 MG/DL (0.60-1.10); PRE OP ALT 21 U/L (30-65); PRE OP ANION GAP 5 (8-16); PRE OP AST 15 U/L (10-37); PRE OP BILIRUB, TOTAL 0.4 MG/DL (0.0-1.0); PRE OP GLUCOSE 119 MG/DL (70-104); PRE OP SODIUM 139 MMOL/L (135-145); TOTAL CARBON DIOXIDE 28.6 MMOL/L (24-32); TOTAL PROTEIN 7.2 G/DL (6.4-8.2); eGFR 84 ML/MIN
[2020-10-12] VITALS (9 sets, daily range): BP systolic 116–147; BP diastolic 77–92
[~2020-10-12] VITALS: Ht 175.3 cm; Wt 83.0 kg
[~2020-10-12 05:25] MED LIST changes: -AMLO5TAB16 PO; -HYDR25TA4 PO; +LEVO100T PO; -VERA240T12 PO; +ringers solution, lacted 1,000 ML IV SCH
[2020-10-12] MEDS ORDERED: DOCUMENT DATE & TIME OF BETA-BLOCKER PO ONE (05:30)
[2020-10-12] MEDS ORDERED: famotidine 20mg tablet PO ONE (05:30)
[2020-10-12] MEDS ORDERED: ceFAZolin 2gm in dextrose, iso 50 ML IV ONE (05:30)
[2020-10-12] MEDS ORDERED: LIDOcaine 1% (10mg/ml) 2ml vial ONE (06:24)
[2020-10-12] MEDS ORDERED: BUPIVAcaine/PF 2.5 mg/ml (0.25%) 30ml vial ONE (06:51)
[2020-10-12] MEDS ORDERED: LIDOcaine 1% 30ml preserv. free vial ONE (06:51)
[2020-10-12 07:15] LABS: PRE OP PARTIAL THROMB. TIME 28 SECONDS (22-32)
[2020-10-12] MEDS ORDERED: propofol inj 20 ML IV ONE (07:17)
[2020-10-12] MEDS ORDERED: fentaNYL/PF 50MCG/1 ML 2ML syringe ONE (07:17)
[2020-10-12] MEDS ORDERED: rocuronium 10mg/ml inj IV ONE (07:17)
[2020-10-12] MEDS ORDERED: midazolam 2 mg/2 ml injection ONE (07:17)
[2020-10-12] MEDS ORDERED: sevoflurane 250ml liquid IH ONE (07:19)
[2020-10-12] MEDS ORDERED: ondansetron/PF 4mg/2ml inj IV PRN (07:25)
[2020-10-12] MEDS ORDERED: ringers solution, lacted 1,000 ML IV SCH (07:25)
[2020-10-12] MEDS ORDERED: morphine 4 MG/ML inj SYRINge IV PRN (07:25)
[2020-10-12] MEDS ORDERED: proCHLORperazine 10 MG/2 ml inj IV PRN (07:25)
[2020-10-12] MEDS ORDERED: morphine 2 MG/ML inj. syringe IV PRN (07:25)
[2020-10-12] MEDS ORDERED: meperidine/PF 25mg/ml syringe IV PRN ×3 (07:25)
[2020-10-12] MEDS ORDERED: dexamethasone sod phosphate 4mg/ml inj. ONE (07:33)
[2020-10-12] MEDS ORDERED: glycopyrrolate 0.2mg/ml inj ONE (08:39)
[2020-10-12] MEDS ORDERED: neostigmine methylsulfate 1 MG/ML 10ml vial ONE (08:39)
[2020-10-12] MEDS ORDERED: ondansetron/PF 4mg/2ml inj ONE (08:42)
--- NOTE | 2020-10-12 08:55 | NUR ---
Received from OR via BED , accompanied by Anesthesiologist DR COCHRAN and report given by Anesthesiolgist. PATIENT WAKING UP, DENIES PAIN, V/S WNL, NEUROVASCULAR CHECKS INTACT, 20G PIV LUE, SCD ON, BANDAIDS TO LAP SIGHTS OF ABDOMEN CDI.
[2020-10-12] MEDS ORDERED: HYDROcodone/acetaminophen 5mg/325mg tablet PO PRN (09:10)
--- NOTE | 2020-10-12 10:25 | NUR ---
PATIENT A&OX4, DENIES PAIN, V/S WNL, NEUROVASCULAR CHECKS INTACT, 20G PIV LUE D/C, SCD OFF, BANDAIDS TO LAP SIGHTS OF ABDOMEN CDI.. I HAVE REVIEWED D/C INSTRUCTIONS WITH PATIENT AND FAMILY HAVE VERBALIZED UNDERSTANDING.PATIENT WAS D/C HOME WITH ALL BELONGINGS AND FAMILY GAVE TRANSPORT HOME.
== END 2020-10-12 10:25 | disposition home or self-care (01) ==
LOC: PAS 05:25
PROVIDERS: ATTEND Surgery
DX: K40.90 Unilateral inguinal hernia, without obstruction or gangrene, not specified as recurrent (principal); Z20.828 Contact with and (suspected) exposure to other viral communicable diseases; E03.9 Hypothyroidism, unspecified; I10 Essential (primary) hypertension; I48.91 Unspecified atrial fibrillation; Z98.890 Other specified postprocedural states; Z88.1 Allergy status to other antibiotic agents; Z79.01 Long term (current) use of anticoagulants; Z79.899 Other long term (current) drug therapy; Z86.73 Personal history of transient ischemic attack (TIA), and cerebral infarction without residual deficits; Z86.14 Personal history of Methicillin resistant Staphylococcus aureus infection; Z86.718 Personal history of other venous thrombosis and embolism; Z85.05 Personal history of malignant neoplasm of liver
CPT/HCPCS: 36415; 49650; 80053; 85025; 85610; 85730; 87635; 93005; C1781; J1100; J2001; J2250; J2405; J2704; J2710; J3010; J3490; J7120; A4215; A4618

== ENCOUNTER 2022-03-31 08:59 | Emergency (ER) | payer MEDICARE, OTHER ==
[~2022-03-31] VITALS: Ht 175.3 cm; Wt 81.8 kg
[~2022-03-31 08:59] MED LIST changes: +LISI40TA13 PO; -LISI40TA4 PO; +POTA-207 PO; -POTA20TA19 PO; -ringers solution, lacted 1,000 ML IV SCH
[2022-03-31] MEDS ORDERED: phenylephrine 1% (X-tra strg) 15ml nasal spray NS ONE (10:30)
[2022-03-31] MEDS ORDERED: LIDOcaine 4% (40 mg/ml) topical solution 50ml TP ONE (10:30)
[2022-03-31] MEDS ORDERED: silver nitrate applicator stick TP ONE (10:45)
[2022-03-31 11:27] LABS: BASOPHILS # (AUTO) 0.1 X10'3 (0-0.2); BASOPHILS % (AUTO) 1.7 % (0-1); EOSINOPHILS # (AUTO) 0.2 X10'3 (0-0.9); EOSINOPHILS % (AUTO) 3.4 % (0-6); HEMATOCRIT 44.1 % (42.0-52.0); HEMOGLOBIN 14.9 g/dl (14.0-17.9); LYMPHOCYTES # (AUTO) 1.4 X10'3 (1.1-4.8); LYMPHOCYTES % (AUTO) 20.4 % (21-51); MEAN CORPUSCULAR HEMOGLOBIN 33.1 PG (27.0-31.0); MEAN CORPUSCULAR HGB CONC 33.7 g/dL (33.0-36.5); MEAN CORPUSCULAR VOLUME 98.2 FL (78-98); MEAN PLATELET VOLUME 7.2 FL (7.4-10.4); MONOCYTES # (AUTO) 0.5 X10'3 (0-0.9); MONOCYTES % (AUTO) 7.4 % (2-12); NEUTROPHILS # (AUTO) 4.5 X10'3 (1.8-7.7); NEUTROPHILS % (AUTO) 67.1 % (42-75); PLATELET COUNT 261 X10'3 (140-440); RED BLOOD COUNT 4.49 X10'6 (4.70-6.10); RED CELL DISTRIBUTION WIDTH 14.2 % (11.5-14.5); WHITE BLOOD COUNT 6.7 X10'3 (4.5-11.0)
[2022-03-31 11:40] LABS: APTT 38 SECONDS (22-32)
[2022-03-31 11:42] LABS: ALANINE AMINOTRANSFERASE 15 U/L (12-78); ALBUMIN 3.6 G/DL (3.4-5.0); ALBUMIN/GLOBULIN RATIO 1.1 (1.1-1.5); ALKALINE PHOSPHATASE 63 IU/L (46-116); ANION GAP 8 (8-16); ASPARTATE AMINO TRANSFERASE 16 U/L (10-37); BILIRUBIN,TOTAL 0.5 MG/DL (0.1-1.0); BLOOD UREA NITROGEN 20 MG/DL (7-18); CALCIUM 8.8 MG/DL (8.5-10.1); CHLORIDE 106 MMOL/L (99-107); GLUCOSE 118 MG/DL (70-104); POTASSIUM 3.9 MMOL/L (3.5-5.1); SODIUM 139 MMOL/L (135-145); TOTAL CARBON DIOXIDE 24.8 MMOL/L (24-32); eGFR > 90 ML/MIN
[2022-03-31 13:27] VITALS: BP 146/88
== END 2022-03-31 13:31 | disposition home or self-care (01) ==
LOC: ER 09:00
DX: R04.0 Epistaxis (principal); I48.91 Unspecified atrial fibrillation; Z79.01 Long term (current) use of anticoagulants; Z79.899 Other long term (current) drug therapy; Z88.1 Allergy status to other antibiotic agents
CPT/HCPCS: 30901; 36415; 80053; 85025; 85610; 85730; 99284

== ENCOUNTER 2022-07-25 06:31 | Day surgery (SDC) | payer MEDICARE, OTHER ==
[2022-07-25] VITALS (12 sets, daily range): BP systolic 114–138; BP diastolic 62–93
[~2022-07-25] VITALS: Ht 175.3 cm; Wt 82.0 kg
[2022-07-25] MEDS ORDERED: normal saline 1000ml 1,000 ML IV PRN (07:00)
[2022-07-25] MEDS ORDERED: EPLE25TA4 PO (07:25)
[2022-07-25] MEDS ORDERED: Prevagen (07:25)
[2022-07-25] MEDS ORDERED: EMPA10TA PO (07:25)
[2022-07-25] MEDS ORDERED: SACU1TAB4 PO (07:25)
[2022-07-25 08:15] LABS: BASOPHILS # (AUTO) 0.1 X10'3 (0-0.2); BASOPHILS % (AUTO) 1.3 % (0-1); EOSINOPHILS # (AUTO) 0.3 X10'3 (0-0.9); EOSINOPHILS % (AUTO) 4.9 % (0-6); HEMATOCRIT 40.5 % (42.0-52.0); HEMOGLOBIN 13.7 g/dl (14.0-17.9); LYMPHOCYTES # (AUTO) 1.2 X10'3 (1.1-4.8); LYMPHOCYTES % (AUTO) 20.1 % (21-51); MEAN CORPUSCULAR HGB CONC 33.8 g/dL (33.0-36.5); MEAN CORPUSCULAR VOLUME 97.8 FL (78-98); MEAN PLATELET VOLUME 7.4 FL (7.4-10.4); MONOCYTES # (AUTO) 0.6 X10'3 (0-0.9); MONOCYTES % (AUTO) 9.4 % (2-12); NEUTROPHILS # (AUTO) 3.9 X10'3 (1.8-7.7); NEUTROPHILS % (AUTO) 64.3 % (42-75); PLATELET COUNT 259 X10'3 (140-440); RED BLOOD COUNT 4.14 X10'6 (4.70-6.10); RED CELL DISTRIBUTION WIDTH 15.4 % (11.5-14.5)
[2022-07-25] MEDS ORDERED: fentaNYL/PF 50MCG/1 ML 2ML syringe ONE (10:01)
[2022-07-25] MEDS ORDERED: midazolam 1 mg/ML 2ml injection ONE (10:01)
[2022-07-25] MEDS ORDERED: normal saline 1000ml 1,000 ML IV SCH (10:35)
== END 2022-07-25 12:40 | disposition home or self-care (01) ==
LOC: SSTAY O 06:31
PROVIDERS: ATTEND Radiology Vascular & Interventional Radiology
DX: R16.0 Hepatomegaly, not elsewhere classified (principal); C43.9 Malignant melanoma of skin, unspecified; I48.91 Unspecified atrial fibrillation; I50.9 Heart failure, unspecified; Z79.899 Other long term (current) drug therapy; Z98.890 Other specified postprocedural states; Z88.8 Allergy status to other drugs, medicaments and biological substances
CPT/HCPCS: 36415; 47000; 77012; 85025; 85610; 99152; 99153; J2250; J3010; J7030; 88307; 88313; A4620

== ENCOUNTER 2022-10-31 11:03 | Day surgery (SDC) | payer MEDICARE, OTHER ==
[2022-10-31] VITALS (9 sets, daily range): BP systolic 121–141; BP diastolic 67–104
[~2022-10-31] VITALS: Ht 175.3 cm; Wt 80.9 kg
[~2022-10-31 11:03] MED LIST changes: +EMPA10TA PO; +EPLE25TA4 PO; -LISI40TA13 PO; +Prevagen; +SACU1TAB4 PO
[2022-10-31] MEDS ORDERED: fentaNYL/PF 50MCG/1 ML 2ML syringe ONE (11:17)
[2022-10-31] MEDS ORDERED: LIDOcaine 1% 30ml preserv. free vial ONE (11:17)
[2022-10-31] MEDS ORDERED: midazolam 1 mg/ML 2ml injection ONE (11:17)
[2022-10-31] MEDS ORDERED: iohexol 350 MG/ML 50ML vial IV ONE (11:18)
[2022-10-31] MEDS ORDERED: LORazepam 0.5 MG tablet PO PRN (11:30)
[2022-10-31] MEDS ORDERED: normal saline 1,000 ML IV SCH (11:30)
[2022-10-31] MEDS ORDERED: FURO40TA4 PO (11:53)
[2022-10-31] MEDS ORDERED: HYDROcodone/acetaminophen 5mg/325mg tablet PO PRN (14:30)
[2022-10-31] MEDS ORDERED: HYDROcodone/acetaminophen 10/325mg tab PO PRN (14:30)
--- NOTE | 2022-10-31 15:45 | NUR ---
Removal of purse string venous closure. Dressing applied post removal of purse string closure after observation of no bleeding. Addendum: 10/31/22 at 1651 by Buck Pierce RN Amended: Links added.
[2022-11-01 06:35] LABS: ISTAT Hct MIX 40 %PCV (42-52); ISTAT O2 SATURATION MIX VENOUS 65 % (60-80); ISTAT SOURCE VEN
[2022-11-01 06:39] LABS: ISTAT Hct MIX 40 %PCV (42-52); ISTAT O2 SATURATION MIX VENOUS 66 % (60-80); ISTAT SOURCE VEN
== END 2022-10-31 16:32 | disposition home or self-care (01) ==
LOC: SSTAY O 11:03
PROVIDERS: ATTEND Internal Medicine Interventional Cardiology
DX: I50.9 Heart failure, unspecified (principal); I48.91 Unspecified atrial fibrillation; I13.0 Hypertensive heart and chronic kidney disease with heart failure and stage 1 through stage 4 chronic kidney disease, or unspecified chronic kidney disease; N18.9 Chronic kidney disease, unspecified; E03.9 Hypothyroidism, unspecified; Z79.899 Other long term (current) drug therapy; Z79.01 Long term (current) use of anticoagulants; Z85.05 Personal history of malignant neoplasm of liver; Z85.09 Personal history of malignant neoplasm of other digestive organs; Z88.8 Allergy status to other drugs, medicaments and biological substances
CPT/HCPCS: 33289; 36415; 76937; 82803; 85014; 85610; 93005; 99152; 99153; C1751; C1769; C1894; C2624; J1644; J2250; J3010; J3490; J7030; Q9967; A6258; A6449

== ENCOUNTER 2022-12-27 06:31 | Day surgery (SDC) | payer MEDICARE, OTHER ==
[~2022-12-27] VITALS: Ht 175.3 cm; Wt 84.0 kg
[2022-12-27] VITALS (14 sets, daily range): BP systolic 129–143; BP diastolic 71–95
[~2022-12-27 06:31] MED LIST changes: -DOXA8TAB PO; +FURO40TA4 PO
[2022-12-27] MEDS ORDERED: normal saline 1000ml 1,000 ML IV PRN (06:55)
[2022-12-27 07:32] LABS: BASOPHILS % (AUTO) 0.7 % (0-1); EOSINOPHILS # (AUTO) 0.1 X10'3 (0-0.9); EOSINOPHILS % (AUTO) 1.5 % (0-6); HEMATOCRIT 43.4 % (42.0-52.0); HEMOGLOBIN 14.2 g/dl (14.0-17.9); LYMPHOCYTES # (AUTO) 0.8 X10'3 (1.1-4.8); LYMPHOCYTES % (AUTO) 13.2 % (21-51); MEAN CORPUSCULAR HEMOGLOBIN 32.6 PG (27.0-31.0); MEAN CORPUSCULAR HGB CONC 32.6 g/dL (33.0-36.5); MEAN PLATELET VOLUME 7.6 FL (7.4-10.4); MONOCYTES # (AUTO) 0.6 X10'3 (0-0.9); MONOCYTES % (AUTO) 9.1 % (2-12); NEUTROPHILS # (AUTO) 4.8 X10'3 (1.8-7.7); NEUTROPHILS % (AUTO) 75.5 % (42-75); PLATELET COUNT 271 X10'3 (140-440); RED BLOOD COUNT 4.35 X10'6 (4.70-6.10); RED CELL DISTRIBUTION WIDTH 16.2 % (11.5-14.5); WHITE BLOOD COUNT 6.4 X10'3 (4.5-11.0)
[2022-12-27] MEDS ORDERED: DOXA8TAB PO (07:52)
[2022-12-27] MEDS ORDERED: fentaNYL/PF 50MCG/1 ML 2ML syringe ONE (08:52)
[2022-12-27] MEDS ORDERED: midazolam 1 mg/ML 2ml injection ONE (08:52)
[2022-12-27] MEDS ORDERED: LIDOcaine 1% 30ml preserv. free vial ONE (08:54)
--- NOTE | 2022-12-27 09:26 | NUR ---
DLP for liver biospy procedure was [phone].
== END 2022-12-27 11:00 | disposition home or self-care (01) ==
LOC: SSTAY O 06:31
PROVIDERS: ATTEND Radiology Vascular & Interventional Radiology
DX: K76.89 Other specified diseases of liver (principal); C78.7 Secondary malignant neoplasm of liver and intrahepatic bile duct; Z88.1 Allergy status to other antibiotic agents; Z79.01 Long term (current) use of anticoagulants; Z79.899 Other long term (current) drug therapy; Z82.49 Family history of ischemic heart disease and other diseases of the circulatory system
CPT/HCPCS: 36415; 47000; 77012; 85025; 85610; 99152; 99153; J2250; J3010; J3490; J7030; A4615

== ENCOUNTER 2023-01-04 10:09 | Outpatient (CLI) | payer MEDICARE, OTHER ==
[~2023-01-04 10:09] MED LIST changes: +DOXA8TAB PO
[2023-01-04] MEDS ORDERED: PEMB100V (10:57)
[2023-01-04 11:27] LABS: BASOPHILS # (AUTO) 0.1 X10'3 (0-0.2); BASOPHILS % (AUTO) 0.9 % (0-1); EOSINOPHILS # (AUTO) 0.1 X10'3 (0-0.9); EOSINOPHILS % (AUTO) 0.9 % (0-6); LYMPHOCYTES # (AUTO) 0.9 X10'3 (1.1-4.8); LYMPHOCYTES % (AUTO) 13.7 % (21-51); MEAN CORPUSCULAR HEMOGLOBIN 33.6 PG (27.0-31.0); MEAN CORPUSCULAR HGB CONC 33.5 g/dL (33.0-36.5); MEAN CORPUSCULAR VOLUME 100.5 FL (78-98); MEAN PLATELET VOLUME 7.6 FL (7.4-10.4); MONOCYTES # (AUTO) 0.6 X10'3 (0-0.9); MONOCYTES % (AUTO) 8.8 % (2-12); NEUTROPHILS # (AUTO) 5.2 X10'3 (1.8-7.7); NEUTROPHILS % (AUTO) 75.7 % (42-75); PRE OP HEMATOCRIT 44.9 % (42.0-52.0); PRE OP PLATELET COUNT 254 X10'3 (140-440); RED BLOOD COUNT 4.47 X10'6 (4.70-6.10); RED CELL DISTRIBUTION WIDTH 16.6 % (11.5-14.5)
[2023-01-04 11:37] LABS: ALBUMIN 3.3 G/DL (3.4-5.0); ALKALINE PHOSPHATASE 113 IU/L (46-116); BLOOD UREA NITROGEN 20 MG/DL (7-18); BUN/CREATININE RATIO 20.6 (10.0-20.0); CALCIUM 8.7 MG/DL (8.5-10.1); CHLORIDE 104 MMOL/L (99-107); CREATININE 0.97 MG/DL (0.60-1.10); PRE OP ALT 23 U/L (30-65); PRE OP ANION GAP 6 (8-16); PRE OP AST 25 U/L (10-37); PRE OP BILIRUB, TOTAL 1.1 MG/DL (0.0-1.0); PRE OP GLUCOSE 160 MG/DL (70-104); PRE OP POTASSIUM 4.2 MMOL/L (3.4-5.1); PRE OP SODIUM 140 MMOL/L (135-145); TOTAL CARBON DIOXIDE 29.7 MMOL/L (24-32); TOTAL PROTEIN 6.6 G/DL (6.4-8.2); eGFR 74 ML/MIN
== END 2023-01-04 23:59 | disposition home or self-care (01) ==
LOC: LAB 10:09 → EDSTATUS 01-09 09:00
PROVIDERS: ATTEND Surgery
DX: K43.9 Ventral hernia without obstruction or gangrene (principal); R60.9 Edema, unspecified; Z95.0 Presence of cardiac pacemaker
CPT/HCPCS: 36415; 71046; 80053; 85025; J7120

== ENCOUNTER 2023-01-11 12:11 | Day surgery (SDC) | payer MEDICARE, OTHER ==
[2023-01-11] VITALS (9 sets, daily range): BP systolic 116–142; BP diastolic 66–96
[~2023-01-11] VITALS: Ht 175.3 cm; Wt 83.6 kg
[~2023-01-11 12:11] MED LIST changes: +DOCUMENT DATE & TIME OF BETA-BLOCKER PO ONE; -DOXA8TAB PO; +cefazolin 2gm/D5W 100mL 100 ML IV ONE; +famotidine 20mg tablet PO ONE; +ringers solution, lacted 1,000 ML IV SCH
[2023-01-11] MEDS ORDERED: LIDOcaine 1% 30ml preserv. free vial ONE (12:38)
[2023-01-11] MEDS ORDERED: BUPIVAcaine/PF 2.5 mg/ml (0.25%) 30ml vial ONE (12:38)
[2023-01-11] MEDS ORDERED: albuterol 60 PUFF/8GM Inhaler (90mcg/1 puff) IH ONE (12:40)
[2023-01-11] MEDS ORDERED: sevoflurane 250ml liquid IH ONE (12:40)
[2023-01-11] MEDS ORDERED: HYDROmorphone/PF 0.2 MG/ML SYRINGE IV PRN ×2 (12:45)
[2023-01-11] MEDS ORDERED: proCHLORperazine 10 MG/2 ml inj IV PRN (12:45)
[2023-01-11] MEDS ORDERED: meperidine/PF 25mg/ml syringe IV PRN (12:45)
[2023-01-11] MEDS ORDERED: morphine 2 MG/ML inj. syringe IV PRN (12:45)
[2023-01-11] MEDS ORDERED: morphine 4 MG/ML inj SYRINge IV PRN (12:45)
[2023-01-11] MEDS ORDERED: hydrALAZINE 20mg/ml inj. IV PRN (12:45)
[2023-01-11] MEDS ORDERED: ringers solution, lacted 1,000 ML IV SCH (12:45)
[2023-01-11] MEDS ORDERED: ondansetron/PF 4mg/2ml inj IV PRN (12:45)
[2023-01-11] MEDS ORDERED: labetalol 20mg/4ml (5mg/ml) syringe IV PRN (12:45)
[2023-01-11] MEDS ORDERED: midazolam 1 mg/ML 2ml injection ONE (12:50)
[2023-01-11] MEDS ORDERED: fentaNYL /PF 50mcg/ml 5ml ampule ONE (12:50)
[2023-01-11 12:56] LABS: PRE OP INR 1.3 INR; PRE OP PROTIME 13.3 SECONDS (9.0-12.0)
[2023-01-11] MEDS ORDERED: dexamethasone sod phosphate 4mg/ml inj. ONE (13:04)
[2023-01-11] MEDS ORDERED: rocuronium 10mg/ml inj IV ONE (13:04)
[2023-01-11] MEDS ORDERED: LIDOcaine 2% (20mg/ml) 5ml vial ONE (13:04)
[2023-01-11] MEDS ORDERED: propofol inj 20 ML IV ONE (13:04)
[2023-01-11] MEDS ORDERED: ondansetron/PF 4mg/2ml inj ONE (13:04)
[2023-01-11] MEDS ORDERED: BUPIVAcaine/PF 2.5 mg/ml (0.25%) 30ml vial IJ ONE (13:31)
[2023-01-11] MEDS ORDERED: LIDOcaine 1% 30ml preserv. free vial IJ ONE (13:32)
[2023-01-11] MEDS ORDERED: glycopyrrolate 0.2mg/ml inj ONE (14:05)
[2023-01-11] MEDS ORDERED: neostigmine methylsulfate 1 MG/ML 10ml vial ONE (14:05)
[2023-01-11] MEDS ORDERED: furosemide 40mg/4ml inj ONE (14:28)
--- NOTE | 2023-01-11 14:32 | NUR ---
Received from OR via JOHN , accompanied by Anesthesiologist and report given by ELVIS Anesthesiologist. PATIENT WAKING UP, DENIES PAIN, V/S WNL, PIV 20G RIGHT FOREARM, DERMABONDED LAPS SITES CLOSED C/D/I TO ABDOMEN. Addendum: 01/11/23 at 1453 by Vidal Blair RN Amended: Links added.
[2023-01-11] MEDS ORDERED: HYDROcodone/acetaminophen 5mg/325mg tablet PO PRN (14:35)
[2023-01-11] MEDS ORDERED: ipratropium/albuterol 3ml nebule NEB ONE (14:55)
--- NOTE | 2023-01-11 15:47 | NUR ---
ALL DISCHARGE CRITERIA HAS BEEN MET. VSS, PAIN AT A TOLERABLE LEVEL, VOIDING AND ABLE TO SAFELY AMBULATE AND TRANSFER SELF. IV TAKEN OUT WITHOUT ANY COMPLICATIONS. ALL DISCHARGE INSTRUCTIONS COVERED WITH PATIENT AND ALL QUESTIONS ANSWERED. PATIENT TAKEN OUT VIA WHEELCHAIR WITH ALL BELONGINGS TO PERSONAL VEHICLE WHERE FAMILY DROVE PATIENT HOME. Addendum: 01/11/23 at 1603 by Vidal Blair RN Amended: Links added.
[2023-01-11] MEDS ORDERED: ROPIVAcaine 0.5% (5mg/ml) 30ml vial ONE (16:12)
[2023-01-11] MEDS ORDERED: BUPIVACAINE liposomal/PF 13.3 MG/ML vial IM ONE (16:12)
== END 2023-01-11 15:47 | disposition home or self-care (01) ==
LOC: PRE-OP 12:11
PROVIDERS: ATTEND Surgery
DX: K43.9 Ventral hernia without obstruction or gangrene (principal); Z79.899 Other long term (current) drug therapy; Z79.01 Long term (current) use of anticoagulants; M19.90 Unspecified osteoarthritis, unspecified site; I11.0 Hypertensive heart disease with heart failure; I50.9 Heart failure, unspecified; I48.91 Unspecified atrial fibrillation; Z88.8 Allergy status to other drugs, medicaments and biological substances; Z86.718 Personal history of other venous thrombosis and embolism
CPT/HCPCS: 36415; 49593; 82948; 85610; 85730; 94640; 94760; C1781; C9290; J0690; J1100; J1940; J2250; J2405; J2704; J2710; J2795; J3010; J3490; J7030; J7120; Z7506; Z7508; Z7512; A4215; A4618; A7000